=== PATIENT | male | born 1985 | race Caucasian/White ===

== ENCOUNTER 2017-08-03 14:33 | Emergency (ER) | payer SELFPAY ==
[2017-08-03 14:37] VITALS: BP 124/78; PULSE 88; TEMP 98; BMI 31.0
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
[2017-08-03] MEDS ORDERED: diazePAM 2 MG TABLET PO ONE (15:31)
[2017-08-03] MEDS ORDERED: diazePAM 2 MG TABLET ONE (15:36)
[2017-08-03 15:40] LABS: BASO % 0.8 % (0-2.0); EOS % 0.5 % (0-4.5); HEMATOCRIT 42.5 % (35.4-49); HEMOGLOBIN 15.1 GM/dL (11.7-16.9); MCH 32.3 pg (25.7-33.7); MCHC 35.5 g/dl (32.0-35.9); MEAN CELL VOLUME 90.9 fl (80-96); MONO % 7.3 % (3.8-10.2); NEUT % 69.4 % (42.8-82.8); PLATELET COUNT 240 K/MM3 (134-434); RBC 4.67 M/mm3 (4.00-5.60); RDW 13.5 % (11.9-15.9); WHITE BLOOD COUNT 6.7 K/mm3 (4.0-10.0)
[2017-08-03 16:00] LABS: ALBUMIN 4.4 g/dl (3.4-5.0); ANION GAP 5 (8-16); BILIRUBIN,TOTAL 2.6 mg/dL (0.2-1.0); BLOOD UREA NITROGEN 13 mg/dL (7-18); CALCIUM 9.1 mg/dL (8.5-10.1); CHLORIDE 106 mmol/L (98-107); CO2 28 mmol/L (21-32); CREATININE 1.1 mg/dL (0.7-1.3); GLUCOSE,RANDOM 97 mg/dL (74-106); POTASSIUM 3.7 mmol/L (3.5-5.1); SGOT/AST 29 U/L (15-37); SGPT/ALT 107 U/L (12-78); SODIUM 139 mmol/L (136-145); TOT PROT 8.1 g/dl (6.4-8.2)
[2017-08-03 16:01] LABS: ALK PHOS 151 U/L (45-117)
--- NOTE | 2017-08-03 21:45 | EKG ---
Test Reason : Blood Pressure : / mmHG Vent. Rate : 072 BPM Atrial Rate : 072 BPM P-R Int : 130 ms QRS Dur : 106 ms QT Int : 392 ms P-R-T Axes : 053 069 053 degrees QTc Int : 429 ms NORMAL SINUS RHYTHM NORMAL ECG WHEN COMPARED WITH ECG OF 19-JUL-2017 22:34, NO SIGNIFICANT CHANGE WAS FOUND Confirmed by FELI DICKEY MD ([id number]) on 08/03/2017 9:45:23 PM Referred By: Confirmed By:FELI DICKEY MD
== END 2017-08-03 17:02 | disposition home or self-care (01) ==
LOC: JERFT 14:33
DX: R07.89 Other chest pain (principal); R79.89 Other specified abnormal findings of blood chemistry
CPT/HCPCS: 36415; 80053; 82550; 84484; 85025; 93005; 93010; 99281-25

== ENCOUNTER 2020-04-13 23:35 | Emergency (ER) | payer OTHER | END 2020-04-14 00:40 | disposition home or self-care (01) | LOC: FER 23:35 | CPT/HCPCS: 99283-25 ==

== ENCOUNTER 2020-12-11 14:52 | Emergency (ER) | payer OTHER ==
[2020-12-11 15:28] VITALS: TEMP 99.8; BMI 32.0
[2020-12-11] MEDS ORDERED: hydrOXYzine PAMOATE 50 MG CAPSULE (FP) PO ONE (16:54)
[2020-12-11] MEDS ORDERED: ONDANSETRON *ODT* 4 MG TABLET SL ONE (16:55)
[2020-12-11] MEDS ORDERED: FAMOTIDINE 20 MG TABLET PO ONE (16:55)
[2020-12-11] MEDS ORDERED: hydrOXYzine PAMOATE 50 MG CAPSULE (FP) ONE (17:00)
[2020-12-11] MEDS ORDERED: FAMOTIDINE 20 MG TABLET ONE (17:00)
[2020-12-11] MEDS ORDERED: ONDANSETRON *ODT* 4 MG TABLET ONE (17:01)
[2020-12-11 17:21] LABS: BASO % 0.6 % (0-2.0); EOS % 0.5 % (0-4.5); HEMATOCRIT 40.6 % (35.4-49); HEMOGLOBIN 14.2 GM/dL (11.7-16.9); LYMPH % 15.1 % (8-40); MCH 31.2 pg (25.7-33.7); MCHC 34.9 g/dl (32.0-35.9); MEAN CELL VOLUME 89.4 fl (80-96); MEAN PLT VOLUME 7.9 fl (7.5-11.1); MONO % 7.7 % (3.8-10.2); NEUT % 76.1 % (42.8-82.8); PLATELET COUNT 219 10^3/uL (134-434); RBC 4.54 M/mm3 (4.00-5.60); RDW 14.5 % (11.9-15.9); WHITE BLOOD COUNT 8.7 K/mm3 (4.0-10.0)
[2020-12-11 17:21] LABS: PH,URINE 6.5 (5.0-8.0); URINE APPEARANCE CLEAR; URINE BILIRUBIN NEGATIVE (NEGATIVE); URINE COLOR YELLOW; URINE GLUCOSE (UA) NEGATIVE (NEGATIVE); URINE KETONE NEGATIVE (NEGATIVE); URINE LEUK ESTERASE NEGATIVE (NEGATIVE); URINE NITRITE NEGATIVE (NEGATIVE); URINE PROTEIN NEGATIVE (NEGATIVE); URINE UROBILINOGEN 0.2 mg/dL (0.2-1.0)
[2020-12-11 17:41] LABS: ALBUMIN 3.9 g/dl (3.4-5.0); BLOOD UREA NITROGEN 5.3 mg/dL (7-18); CALCIUM 8.6 mg/dL (8.5-10.1)
[2020-12-11 17:46] LABS: BILIRUBIN,TOTAL 0.7 mg/dL (0.2-1); TOT PROT 8.2 g/dl (6.4-8.2)
[2020-12-11 18:20] VITALS: BP 136/90; PULSE 96
[2020-12-11] MEDS ORDERED: ALPRAZolam 0.25 MG TABLET PO ONE (19:51)
[2020-12-11] MEDS ORDERED: diazePAM 5 MG TABLET ONE (19:54)
[2020-12-11] MEDS ORDERED: diazePAM 5 MG TABLET PO ONE (19:54)
== END 2020-12-11 19:57 | disposition home or self-care (01) ==
LOC: JER 14:52
DX: F41.9 Anxiety disorder, unspecified (principal); R74.01 Elevation of levels of liver transaminase levels; K75.81 Nonalcoholic steatohepatitis (NASH); R10.84 Generalized abdominal pain
CPT/HCPCS: 36415; 76705-TC; 80053; 81003; 85025; 93005; 93010; 99285-25; Q0162

== ENCOUNTER 2021-05-09 04:35 | Day surgery (SDC) | payer OTHER ==
[2021-05-02 12:44] VITALS: BMI 31.4
[2021-05-09] MEDS ORDERED: MIDAZOLAM HCL 2 MG/2 ML SINGLE DOSE VIAL ONE (08:31)
[2021-05-09 08:54] VITALS: TEMP 97.7
[2021-05-09 09:37] VITALS: BP 128/88; PULSE 84
[2021-05-10 17:08] LABS: MITOCHONDRIAL AB <20.0 Units (0.0-20.0)
[2021-05-10 22:08] LABS: ALPHA 2 MACROGLOBULINS,QN 128 mg/dL (110-276); ALT(SGPT)P5P 20 IU/L (0-55); APOLIPOPROTEIN A-1. 168 mg/dL (101-178); CHOLESTEROL TOTAL 218 mg/dL (100-199); FIBROSIS SCORE- 0.19 (0.00-0.21); GLUCOSE SERUM 80 mg/dL (65-99); HEIGHT. 71 in (.); WEIGHT. 225 LBS (.)
== END 2021-05-09 10:20 | disposition home or self-care (01) ==
LOC: JASU-ENDO 04:35
PROVIDERS: ATTEND Internal Medicine Gastroenterology
PROC: 0DB68ZX Excision of Stomach, Via Natural or Artificial Opening Endoscopic, Diagnostic (ICD-10-PCS; 2021-05-09)
PROC: 0DB38ZX Excision of Lower Esophagus, Via Natural or Artificial Opening Endoscopic, Diagnostic (ICD-10-PCS; principal; 2021-05-09 08:00)
DX: K29.60 Other gastritis without bleeding (principal); K20.90 Esophagitis, unspecified without bleeding
CPT/HCPCS: 36415; 83516; 84080; 88305-TC; 88342-TC

== ENCOUNTER 2021-05-14 15:10 | Emergency (ER) | payer OTHER ==
[2021-05-14 15:21] VITALS: BP 122/78; PULSE 88; TEMP 98.5; BMI 32.0
[2021-05-14] MEDS ORDERED: ACETAMINOPHEN 500 MG TABLET (FP) PO ONE (15:45)
[2021-05-14] MEDS ORDERED: ACETAMINOPHEN 500 MG TABLET (FP) ONE (16:08)
== END 2021-05-14 16:23 | disposition home or self-care (01) ==
LOC: FER 15:10
DX: M62.838 Other muscle spasm (principal)
CPT/HCPCS: 99283-25

== ENCOUNTER 2021-09-05 04:28 | Day surgery (SDC) | payer OTHER ==
[2021-08-30 16:18] VITALS: BMI 31.4
[2021-09-05 11:32] VITALS: BP 131/80; PULSE 71; TEMP 97.5
== END 2021-09-05 11:57 | disposition home or self-care (01) ==
LOC: JASU-ENDO 04:28
PROVIDERS: ATTEND Internal Medicine Gastroenterology
PROC: 0DB78ZX Excision of Stomach, Pylorus, Via Natural or Artificial Opening Endoscopic, Diagnostic (ICD-10-PCS; 2021-09-05)
PROC: 0DB18ZX Excision of Upper Esophagus, Via Natural or Artificial Opening Endoscopic, Diagnostic (ICD-10-PCS; 2021-09-05)
PROC: 0DB28ZX Excision of Middle Esophagus, Via Natural or Artificial Opening Endoscopic, Diagnostic (ICD-10-PCS; principal; 2021-09-05 09:30)
DX: K29.70 Gastritis, unspecified, without bleeding (principal); K20.90 Esophagitis, unspecified without bleeding; K21.9 Gastro-esophageal reflux disease without esophagitis; K44.9 Diaphragmatic hernia without obstruction or gangrene
CPT/HCPCS: 36415; 88305-TC; 88342-TC

== ENCOUNTER 2021-11-26 04:47 | Day surgery (SDC) | payer OTHER ==
[2021-11-21 11:48] VITALS: BMI 32.0
[2021-11-26 08:27] VITALS: TEMP 97.4
[2021-11-26 08:56] VITALS: BP 126/81; PULSE 71; RESP 16
== END 2021-11-26 09:20 | disposition home or self-care (01) ==
LOC: JASU-ENDO 04:47
PROVIDERS: ATTEND Internal Medicine Gastroenterology
PROC: 0DJD8ZZ Inspection of Lower Intestinal Tract, Via Natural or Artificial Opening Endoscopic (ICD-10-PCS; principal; 2021-11-26 08:00)
DX: K62.5 Hemorrhage of anus and rectum (principal); K64.8 Other hemorrhoids

== ENCOUNTER 2021-12-03 04:39 | Day surgery (SDC) | payer OTHER ==
[2021-11-29 15:50] VITALS: BMI 32.0
[2021-12-03 11:00] VITALS: BP 97/76; PULSE 80; RESP 15
[2021-12-03] MEDS ORDERED: LACTATED RINGERS SOLUTION 1,000 ML IV SCH (11:00)
[2021-12-03 12:18] VITALS: TEMP 98.6
== END 2021-12-03 11:27 | disposition home or self-care (01) ==
LOC: JASU-ENDO 04:39
PROVIDERS: ATTEND Internal Medicine Gastroenterology
PROC: 0DJD8ZZ Inspection of Lower Intestinal Tract, Via Natural or Artificial Opening Endoscopic (ICD-10-PCS; principal; 2021-12-03 10:45)
DX: K62.5 Hemorrhage of anus and rectum (principal); K64.8 Other hemorrhoids

== ENCOUNTER 2022-02-03 08:45 | Day surgery (SDC) | payer OTHER ==
[2022-02-03] MEDS ORDERED: MIDAZOLAM HCL 2 MG/2 ML SINGLE DOSE VIAL ONE (09:15)
[2022-02-03 09:36] VITALS: BMI 32.0
[2022-02-03] MEDS ORDERED: BUPIVACAINE HCL/PF 0.25% (2.5MG/ML) 10 ML VIAL ONE (10:02)
[2022-02-03] MEDS ORDERED: KETOROLAC TROMETHAMINE 30 MG/1 ML VIAL ONE (12:48)
[2022-02-03] MEDS ORDERED: ONDANSETRON 4 MG/2 ML VIAL IVPUSH PRN (13:03)
[2022-02-03] MEDS ORDERED: PROMETHAZINE HCL 25 MG/1 ML VIAL IVPUSH PRN (13:03)
[2022-02-03] MEDS ORDERED: oxyCODONE HCL 5 MG TABLET PO PRN (13:03)
[2022-02-03] MEDS ORDERED: LACTATED RINGERS SOLUTION 1,000 ML IV SCH (13:15)
[2022-02-03 14:02] VITALS: RESP 18
[2022-02-03 14:54] VITALS: BP 133/74; PULSE 78; TEMP 97.8
== END 2022-02-03 15:40 | disposition home or self-care (01) ==
LOC: FASU 08:45
PROVIDERS: ATTEND Orthopaedic Surgery Sports Medicine
PROC: 0SBC4ZZ Excision of Right Knee Joint, Percutaneous Endoscopic Approach (ICD-10-PCS; principal; 2022-02-03 12:24)
PROC: 0SBC4ZZ Excision of Right Knee Joint, Percutaneous Endoscopic Approach (ICD-10-PCS; 2022-02-03 12:24)
DX: S83.241A Other tear of medial meniscus, current injury, right knee, initial encounter (principal); S83.281A Other tear of lateral meniscus, current injury, right knee, initial encounter; M67.51 Plica syndrome, right knee; X58.XXXA Exposure to other specified factors, initial encounter; Y93.9 Activity, unspecified; Y92.9 Unspecified place or not applicable
CPT/HCPCS: 94760

== ENCOUNTER 2023-09-14 21:43 | Emergency (ER) | payer OTHER ==
[2023-09-14 21:57] VITALS: BP 147/102; PULSE 91; RESP 16; TEMP 98; BMI 32.0
[2023-09-14] MEDS ORDERED: ACETAMINOPHEN 500 MG TABLET (FP) ONE (23:02)
[2023-09-14] MEDS: ACETAMINOPHEN 500 MG TABLET (FP) PO ONE (23:06)
== END 2023-09-14 23:41 | disposition home or self-care (01) ==
LOC: FER 21:43
DX: S86.012A Strain of left Achilles tendon, initial encounter (principal); X50.1XXA Overexertion from prolonged static or awkward postures, initial encounter
CPT/HCPCS: 99283-25

== ENCOUNTER 2024-04-05 11:02 | Emergency (ER) | payer OTHER ==
[2024-04-05 11:17] VITALS: BP 121/84; PULSE 117; RESP 18; TEMP 98.7; BMI 32.0
[2024-04-05] MEDS ORDERED: KETOROLAC TROMETHAMINE 15 MG/ML VIAL ONE (11:31)
[2024-04-05] MEDS ORDERED: DIPHTH,PERTUSS(ACELL),TET 0.5 ML DISP.SYRIN IM ONE (11:31)
[2024-04-05] MEDS: DIPHTH,PERTUSS(ACELL),TET 0.5 ML DISP.SYRIN IM ONE (11:59)
[2024-04-05] MEDS: KETOROLAC TROMETHAMINE 15 MG/ML VIAL IM ONE (12:00)
== END 2024-04-05 14:05 | disposition home or self-care (01) ==
LOC: FER 11:02
PROC: 3E0133Z Introduction of Anti-inflammatory into Subcutaneous Tissue, Percutaneous Approach (ICD-10-PCS; principal; 2024-04-05)
PROC: 3E0234Z Introduction of Serum, Toxoid and Vaccine into Muscle, Percutaneous Approach (ICD-10-PCS; 2024-04-05)
DX: S01.91XA Laceration without foreign body of unspecified part of head, initial encounter (principal); S60.511A Abrasion of right hand, initial encounter; S60.512A Abrasion of left hand, initial encounter; Y04.0XXA Assault by unarmed brawl or fight, initial encounter; Z23 Encounter for immunization
CPT/HCPCS: 70450-TC; 73070-TC-LT-FY; 73090-TC-LT-FY; 73110-TC-LT-FY; 73130-TC-LT-FY; 90471; 90715; 96372; 99284-25